=== PATIENT | male | born 1980 | race Caucasian/White ===

== ENCOUNTER 2022-06-27 16:33 | Emergency (ER) | payer OTHER, SELFPAY ==
[2022-06-27 16:37] VITALS: BP 137/97; PULSE 96; RESP 14; TEMP 36.2; O2SAT 99
--- NOTE | 2022-06-27 17:04 | ED.PSYCH ---
HPI - Psych General Chief Complaint: Psychiatric Symptoms Stated Complaint: PSYCH Time Seen by Provider: 06/27/22 16:51 History of Present Illness HPI Narrative: 42-year-old male history of bipolar presents to the emergency room for evaluation of depressive symptoms and suicidal ideation last night. Patient states that he was stable on Abilify for a long period of time. States early April his psychiatrist abruptly changed and he, and they changed his medications. States since the medication change, he feels he is not stable with his bipolar. States that he has been driving around for several hours at a time, finds himself crying. States last night he drove himself to [facility], where he was planning on overdosing on pills. At this time, patient denies being SI. Related Data Allergies Allergy/AdvReac Type Severity Reaction Status Date / Time No Known Allergies Allergy Verified 06/27/22 17:32 Review of Systems Review of Systems: CONSTITUTIONAL: Denies fever, chills, or sweats. EYES: Denies visual changes, redness, or discharge. ENT: Denies rhinorrhea, congestion, sore throat, or otalgia. CARDIOVASCULAR: Denies chest pain, palpitations, or edema. RESPIRATORY: Denies cough or dyspnea. GASTROINTESTINAL: Denies abdominal pain, nausea, vomiting, or diarrhea. GENITOURINARY: Denies dysuria or hematuria. SKIN: Denies rash or itching. MUSCULOSKELETAL: Denies back pain, joint pain, or myalgia. NEUROLOGIC: Denies headache, numbness, dizziness, or weakness. PSYCHIATRIC: Reports depression PMFSH Social History Social History Substance use type: does not use Exam Narrative: GENERAL: Well-appearing, well-nourished, no physical limitations, and in no acute distress. HEAD: Normocephalic, atraumatic. EYES: Conjunctivae normal, PERRLA and EOMI. CHEST: Clear to auscultation. No respiratory distress. No wheezes rales or rhonchi. HEART: Regular rate and rhythm. No murmur heard. Normal peripheral pulses. EXTREMITIES: Normal range of motion. No edema. No clubbing or cyanosis SKIN: Warm, dry, no rash. No noted wounds NEURO: No focal deficits. Alert and oriented x3. MAEW. CN's II-XI intact bilaterally, normal gait PSYCH: Cooperative. Tearful. Course Course Emergency Course: 1809: Patient is medically cleared for crisis evaluation. Vital Signs Vital signs: Vital Signs Temperature 36.2 C L 06/27/22 16:37 Pulse Rate 96 06/27/22 16:37 Respiratory Rate 14 06/27/22 16:37 Blood Pressure 137/97 H 06/27/22 16:37 Pulse Oximetry 99 06/27/22 16:37 Oxygen Delivery Room Air 06/27/22 16:37 Temperature 36.2 C L 06/27/22 16:37 Pulse Rate 96 06/27/22 16:37 Respiratory Rate 14 06/27/22 16:37 Blood Pressure 137/97 H 06/27/22 16:37 Pulse Oximetry 99 06/27/22 16:37 Oxygen Delivery Room Air 06/27/22 16:37 MDM - Psych Lab Data 06/27/22 17:10 06/27/22 17:10 Labs: Lab Results 06/27/22 06/27/22 06/27/22 Range/Units 17:10 17:10 17:10 WBC 17.8 H (4.5-10.0) K/mm3 RBC 4.86 (4.6-6.20) M/mm3 Hgb 14.3 (14.0-18.0) g/dL Hct 43.7 (42.0-52.0) % MCV 89.9 (80-100) fl MCH 29.4 (26-34) pg MCHC 32.7 (32-36) g/dl RDW 14.4 (11.5-14.5) % Plt Count 318 (150-375) k/mm3 MPV 9.6 (7.4-10.4) fl Immature Gran % (Auto) 0.5 (0-0.5) % Neut % (Auto) 81.5 H (45.5-73.1) % Lymph % (Auto) 12.0 L (18.3-44.2) % [place] % (Auto) 5.2 (2.6-8.5) % Eos % (Auto) 0.6 (0-4.4) % Baso % (Auto) 0.2 (0.2-1.2) % Lymph # (Auto) 2.14 (0.9-3.2) K/mm3 [place] # (Auto) 0.9 H (0.1-0.6) K/mm3 Eos # (Auto) 0.1 (0-0.3) K/mm3 Baso # (Auto) 0.0 (0.0-0.1) K/mm3 Abs Immat Gran (auto) 0.09 H (0.00-0.031) K/mm3 Absolute Neuts (auto) 14.5 H (1.3-6.7) K/mm3 Absolute Nucleated RBC 0.0 (0.0-0.012) K/mm3 Nucleated RBC % 0.0 (0.0-0.2) % Sodium 136 L (137-145) mm
[2022-06-27 17:17] LABS: Basophils Percent Auto 0.2 % (0.2-1.2); Eosinophils Absolute Auto 0.1 K/mm3 (0-0.3); Eosinophils Percent Auto 0.6 % (0-4.4); Hematocrit 43.7 % (42.0-52.0); Hemoglobin 14.3 g/dL (14.0-18.0); Immature Granulocyte Absolute 0.09 K/mm3 (0.00-0.031); Immature Granulocyte Percent A 0.5 % (0-0.5); Lymphocytes Absolute Auto 2.14 K/mm3 (0.9-3.2); Mean Corpuscular HGB Conc 32.7 g/dl (32-36); Mean Corpuscular Hemoglobin 29.4 pg (26-34); Mean Corpuscular Volume 89.9 fl (80-100); Mean Platelet Volume 9.6 fl (7.4-10.4); Monocytes Absolute Auto 0.9 K/mm3 (0.1-0.6); Monocytes Percent Auto 5.2 % (2.6-8.5); Neutrophils Absolute Auto 14.5 K/mm3 (1.3-6.7); Neutrophils Percent Auto 81.5 % (45.5-73.1); Platelet Count Result 318 k/mm3 (150-375); Red Blood Count 4.86 M/mm3 (4.6-6.20); Red Cell Distribution Width 14.4 % (11.5-14.5); White Blood Count 17.8 K/mm3 (4.5-10.0)
[2022-06-27 17:18] LABS: Appearance Urine Clear (Clear); Bilirubin Urine Negative (Negative); Blood Urine Trace-lysed (Negative); Color Urine Yellow (Yellow); Glucose Urine UA Negative (Negative); Ketones Urine Negative (Negative); Leukocyte Esterase Ur Negative LEU/UL (Negative); Nitrate Urine Negative (Negative); Protein Urine Negative (Negative); Urobilinogen Urine 0.2 mg/dL (<2.0)
[2022-06-27 17:23] LABS: Add Urine Microscopic? YES; RBC Urine 0-2 /hpf (0-2); Squamous Epithelial Cell Urine Rare /hpf (Few)
[2022-06-27 17:26] LABS: Alanine Aminotransferase 42 U/L (6-50); Albumin Level 4.8 g/dL (3.5-5.1); Alkaline Phosphatase 121 U/L (38-126); Anion Gap 7 mmol/L (8-16); Aspartate Amino Transferase 37 U/L (17-59); Bilirubin,Total 0.5 mg/dL (0.2-1.3); Blood Urea Nitrogen 12 mg/dL (9-20); Carbon Dioxide 30 mmol/L (22-30); Chloride 99 mmol/L (98-107); Estimated CRCL calculation 128 ml/min; Estimated Glomerular Filt Rate > 60; Glucose 86 mg/dL (65-110); Potassium 3.8 mmol/L (3.4-5.0); Sodium 136 mmol/L (137-145)
[2022-06-27 17:27] LABS: Acetaminophen < 10 ug/mL (10-30); Ethanol < 10 mg/dL (<10); Salicylate < 1.0 mg/dL (2-20)
[2022-06-27 17:34] LABS: Amphetamine Screen Urine Negative (Negative); Barbiturate Screen Urine Negative (Negative); Benzodiazepines Screen Urine Negative (Negative); Cannabinoid Screen Urine Negative (Negative); Cocaine Screen Urine Negative (Negative); Methadone Screen Urine Negative (Negative); Opiate Screen Urine Negative (Negative); Phencyclidine Screen Urine Negative (Negative)
[2022-06-27 18:18] LABS: Influenza A QL RT-PCR Negative (Negative); Influenza B QL RT-PCR Negative (Negative); SARS-CoV-2 RNA PCR Negative
--- NOTE | 2022-06-27 18:50 | PC.NURSE ---
Contacted crisis at this time. States they will send animal husbandry worker to ER to evaluate patient.
--- NOTE | 2022-06-27 21:01 | PC.NURSE ---
Patient report received from GEMINI Tarango. Assumed care of patient at this time. Patient moved from room 3 to 15 with sitter.
--- NOTE | 2022-06-27 21:43 | PC.NURSE ---
Ann from [facility] calls to get update and inform that the patient is accepted to [facility] under . She requests that the petition be refaxed and she will call back with a bed. boilers and pressure vessels inspector notified.
--- NOTE | 2022-06-27 22:13 | PC.NURSE ---
Matt with [facility] calls to inform the patient has been declined and they are not accepting.
--- NOTE | 2022-06-27 22:41 | PC.NURSE ---
[phone] GEMINI Leonard from [facility] calls to get update and states she will call back.
[2022-06-27 23:45] VITALS: BP 110/56; PULSE 87; RESP 18; TEMP 36.7; O2SAT 99
--- NOTE | 2022-06-28 01:24 | PC.NURSE ---
[phone] GEMINI Downey from [facility] calls to get report and give accepting physician and room number of [id number] accepted by . Patient awaiting EMS to arrive to transport him to [facility]
--- NOTE | 2022-06-28 02:09 | PC.NURSE ---
EMS arrives to transport patient to [facility]. Patient transferred with his chart and belongings.
== END 2022-06-28 02:10 ==
PROVIDERS: Emergency Provider Nurse Practitioner Family
DX: F31.9 Bipolar disorder, unspecified (principal); Z20.822 Contact with and (suspected) exposure to COVID-19
CPT/HCPCS: 36415; 80053; 80307; 81001; 83605; 84443; 85025; 87636; 99285